=== PATIENT | male | born 1940 | race Caucasian/White ===

== ENCOUNTER → 2020-08-03 | Outpatient (CLI) | payer MEDICARE ==
[~2020-08-03] MED LIST: ASPIRIN81 MG PO; BRINTELLIX5 MG PO; PRAVACHOL40 MG PO; PROTONIX40 MG PO; VITAMIN D250000 UNIT PO
== END ==
LOC: RAD 10:15
DX: R63.4 Abnormal weight loss (principal)
CPT/HCPCS: 71046

== ENCOUNTER 2021-01-04 09:55 | Emergency (ER) | payer MEDICARE ==
[2021-01-04 10:48] LABS: HEMOGLOBIN 14.7 gm/dl (14.0-17.5); RED BLOOD COUNT 4.48 M/UL (4.20-5.50)
[2021-01-04 11:12] LABS: BUN/CREATININE RATIO 17 (0-10)
== END 2021-01-04 12:05 | disposition home or self-care (01) ==
LOC: ER1 09:55
PROVIDERS: Student in an Organized Health Care Education/Training Program
DX: N20.0 Calculus of kidney (principal); N40.0 Benign prostatic hyperplasia without lower urinary tract symptoms; I10 Essential (primary) hypertension
CPT/HCPCS: 80053; 81001; 85025; 96374; 99284; J1885; Q9967

== ENCOUNTER 2021-04-04 17:04 | Emergency (ER) | payer MEDICARE ==
[2021-04-04 17:27] LABS: HEMOGLOBIN 14.3 gm/dl (14.0-17.5); RED BLOOD COUNT 4.37 M/UL (4.20-5.50); WHITE BLOOD COUNT 5.6 K/UL (4.5-11.0)
[2021-04-04 17:45] LABS: BUN/CREATININE RATIO 18 (0-10)
[2021-04-04] MEDS ORDERED: COLACE 100MG C100 MG PO (20:19)
[2021-04-04] MEDS ORDERED: CHRONULAC20 GM/30 M PO (20:19)
== END 2021-04-04 20:39 | disposition home or self-care (01) ==
LOC: ER1 17:04
PROVIDERS: Physician Assistant
DX: N20.0 Calculus of kidney (principal); E78.5 Hyperlipidemia, unspecified; I10 Essential (primary) hypertension; K59.00 Constipation, unspecified; Z20.822 Contact with and (suspected) exposure to COVID-19
CPT/HCPCS: 80053; 81001; 83605; 83690; 85025; 99284; Q9967; U0002

== ENCOUNTER 2021-06-19 21:21 | Emergency (ER) | payer MEDICARE ==
[~2021-06-19] VITALS: Ht 185.4 cm; Wt 77.1 kg
[~2021-06-19 21:21] MED LIST changes: +CHRONULAC20 GM/30 M PO; +COLACE 100MG C100 MG PO; -PRAVACHOL40 MG PO; -PROTONIX40 MG PO; -VITAMIN D250000 UNIT PO
[2021-06-19 22:53] LABS: HEMOGLOBIN 15.7 gm/dl (14.0-17.5); RED BLOOD COUNT 4.72 M/UL (4.20-5.50); WHITE BLOOD COUNT 10.2 K/UL (4.5-11.0)
[2021-06-19 23:10] LABS: BUN/CREATININE RATIO 17 (0-10)
[2021-06-20] MEDS ORDERED: ASPIRIN EC81 MG PO (12:45)
[2021-06-20] MEDS ORDERED: ARICEPT5 MG PO (12:47)
[2021-06-20] MEDS ORDERED: LISINOPRIL30 MG PO (12:48)
[2021-06-20] MEDS ORDERED: PROSCAR 5 MG TAB5 MG PO (12:49)
[2021-06-20] MEDS ORDERED: NAMENDA 5 MG TAB5 MG PO (12:51)
[2021-06-20] MEDS ORDERED: ZOLOFT50 MG PO (12:52)
[2021-06-20] MEDS ORDERED: STOOL SOFTENER100 MG PO (12:55)
[2021-06-20] MEDS ORDERED: VITAMIN D21250 MCG PO (13:18)
[2021-06-20] MEDS ORDERED: MULTIVITAMIN200 MCG PO (13:22)
[2021-06-20] MEDS ORDERED: PRAVASTATIN SOD80 MG PO (20:32)
[2021-06-20] MEDS ORDERED: PROTONIX40 MG PO (20:36)
== END 2021-06-21 19:45 | disposition home or self-care (01) ==
LOC: ER1 21:21
PROVIDERS: Physician Assistant
DX: R41.82 Altered mental status, unspecified (principal); Z20.822 Contact with and (suspected) exposure to COVID-19; I10 Essential (primary) hypertension; Z85.46 Personal history of malignant neoplasm of prostate
CPT/HCPCS: 80053; 80307; 81001; 85025; 87086; 93005; 93880; 99285; G0480; J3486; Q0177; U0002